=== PATIENT | male | born 1990 ===

== ENCOUNTER 2017-11-07 06:47 | Day surgery (SDC) | payer OTHER ==
[~2017-11-07] VITALS: Ht 175.3 cm; Wt 62.6 kg
[2017-11-07] VITALS (10 sets, daily range): BP systolic 93–137; BP diastolic 43–67
[~2017-11-07 06:47] MED LIST: RECTIV30 GM RC
[2017-11-07] MEDS ORDERED: TRAZODONE HCL50 MG ORAL (07:25)
[2017-11-07] MEDS ORDERED: EPINEPHrine 1mg/1ml Amp ONE (07:27)
[2017-11-07] MEDS ORDERED: Ropivacaine 5mg/ml Vial 30ml INJ ONE ×2 (07:27→08:43)
[2017-11-07] MEDS ORDERED: Dexamethasone 4mg/ml vial ONE ×2 (07:27→09:00)
[2017-11-07] MEDS ORDERED: Lidocaine 1% Plain 30 ml INJ ONE (07:54)
[2017-11-07] MEDS ORDERED: cefOXitin 1gm Inj ONE (07:56)
[2017-11-07] MEDS ORDERED: Sodium Chloride 10ml vial INJ ONE (08:00)
[2017-11-07] MEDS ORDERED: Alfentanil 2ml Inj ONE (08:06)
[2017-11-07] MEDS ORDERED: Lidocaine 1% MPF 10mg/ml 5ml ONE (08:14)
--- NOTE | 2017-11-07 08:18 | Pre-Procedure Note/Attestation ---
Pre-Procedure Note/Attestation Complete Prior to Procedure Planned Procedure: not applicable Procedure Narrative: Exam under anesthesia, anal fissurectomy, possible lateral partial internal sphincterotomy Indications for Procedure Pre-Operative Diagnosis: chronic anal fissure Attestation I attest that I discussed the nature of the procedure; its benefits; risks and complications; and alternatives (and the risks and benefits of such alternatives ), prior to the procedure, with the patient (or the patient's legal retail wireless sales representative). I attest that, if there was a reasonable possibility of needing a blood transfusion, the patient (or the patient's legal retail wireless sales representative) was given the [place] [facility] [employer] [facility] standardized written summary, pursuant to the Papito Hyndman Blood Safety Act ([place] Health and Safety Code # 1645, as amended). I attest that I re-evaluated the patient just prior to the surgery and that there has been no change in the patient's H&P, except as documented below: NANCY SCHMITZ Nov 07, 2017 08:18
--- NOTE | 2017-11-07 08:22 | Anethesia Preoperative Eval ---
Anesthesia Pre-op PMH/ROS General Date of Evaluation: Nov 07, 2017 Time of Evaluation: 08:31 Anesthesiologist: Ann ASA Score: ASA 2 Mallampati Score Class I : Soft palate, uvula, fauces, pillars visible Class II: Soft palate, uvula, fauces visible Class III: Soft palate, base of uvula visible Class IV: Only hard plate visible Mallampati Classification: Class I Surgeon: Kirill Diagnosis: Buttock Pain Surgical Procedure: EUA, Anal Fissurectomy Anesthesia History: none, MH - Suscetibility Possible Family History: no anesthesia problems Allergies: Uncoded Allergies: GENERAL ANESTHESIA (Allergy, Unknown, 11/05/17) GRANDFATHER HAD MALIGNANT HYPERTHERMIA-PT HAS NOT HAD ANY REACTION WITH PREVIOUS ANESTHESIA. PLEASE USE CAUTIONARY MEASURES. 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 Exam Physician Exam Last Vital Signs Date Time Temp Pulse Resp B/P (MAP) Pulse Ox O2 Delivery O2 Flow Rate FiO2 11/07/17 07:21 Room Air 11/07/17 07:17 97.1 63 18 137/67 (90) 99 97.1 Constitutional: NAD Neurologic: CN 2-12 intact Cardiovascular: RRR Respiratory: CTA Gastrointestinal: S/NT/ND Airway Exam Mallampati Score: Class I MO: full ROM: full Teeth: intact Anesthesia Pre-op A/P Risk Assessment & Plan Assessment: ASA 2 Plan: TIVA Status Change Before Surgery: No Pre-Antibiotics Dru Gram Cefoxitin Given Within 1 Hr of Incision: Yes Time Given: 08:41 Luis Juarez MD Nov 07, 2017 08:22
--- NOTE | 2017-11-07 08:23 | Immediate Post-Op Evaluation ---
Immediate Post-Op Evalulation Immediate Post-Op Evalulation Procedure: EUA, Anal Fissurectomy Date of Evaluation: Nov 07, 2017 Time of Evaluation: 09:35 IV Fluids: 400 LR Blood Products: 0 Estimated Blood Loss: 8 Urinary Output: 0 Blood Pressure Systolic: 97 Blood Pressure Diastolic: 46 Pulse Rate: 59 Respiratory Rate: 16 O2 Sat by Pulse Oximetry: 100 Temperature (Fahrenheit): 98 Pain Score (1-10): 1 Nausea: No Vomiting: No Complications 0 Patient Status: awake, reacts, patent, none Hydration Status: adequate Dru Gram Cefoxitin Given Within 1 Hr of Incision: Yes Time Given: 08:41 Luis Juarez MD Nov 07, 2017 08:23
--- NOTE | 2017-11-07 08:24 | 48 Hour Post Anesthesia Eval ---
Post Anesthesia Evaluation Procedure: EUA, Anal Fissurectomy Date of Evaluation: Nov 07, 2017 Time of Evaluation: 11:47 Blood Pressure Systolic: 106 0: 72 Pulse Rate: 64 Respiratory Rate: 18 Temperature (Fahrenheit): 98 O2 Sat by Pulse Oximetry: 100 Airway: patent Nausea: No Vomiting: No Pain Intensity: 1 Hydration Status: adequate Cardiopulmonary Status: Stable Mental Status/LOC: patient returned to baseline Follow-up Care/Observations: 0 Post-Anesthesia Complications: 0 Follow-up care needed: ready to discharge Luis Juarez MD Nov 07, 2017 08:24
[2017-11-07] MEDS ORDERED: LR 1000ml ONE (08:30)
[2017-11-07] MEDS ORDERED: Sterile Water Irrig 1000ml IRRIG ONE (08:30)
[2017-11-07] MEDS ORDERED: Propofol 200mg/20ml IV ONE (08:30)
[2017-11-07] MEDS ORDERED: NS Irrig 1000ml ONE (08:30)
[2017-11-07] MEDS ORDERED: Dexamethasone 4mg/ml vial INJ ONE (08:43)
[2017-11-07] MEDS ORDERED: Ketamine 500mg Inj ONE (09:04)
--- NOTE | 2017-11-07 09:21 | Brief Operative Note ---
Immediate Post Operative Note Operative Note Pre-op Diagnosis: chronic anal fissure Procedure: Exam under anesthesia, anal fissurectomy, lateral partial internal sphincterotomy Post-op Diagnosis: same as pre-op Findings: consistent w/pre-op dx studies Surgeon: Hien Schmitz MD Anesthesiologist: Luis Juarez MD Anesthesia: moderate sedation Specimen: none Complications: none Condition: stable Fluids: see anesthesia record Estimated Blood Loss: minimal Drains: none Implant(s) used?: No HIEN SCHMITZ Nov 07, 2017 09:21
--- NOTE | 2017-11-07 14:00 | Operative Note - Dictated ---
DATE OF OPERATION: 11/07/2017 PREOPERATIVE DIAGNOSIS: Chronic anal fissure. POSTOPERATIVE DIAGNOSIS: Chronic anal fissure. PROCEDURE: Exam under anesthesia, anal fissurectomy, lateral partial internal sphincterotomy. SURGEON: Hien Roy M.D. ANESTHESIOLOGIST: Luis Juarez M.D. ANESTHESIA: Propofol sedation with local anesthetic. INDICATION FOR PROCEDURE: The patient is a 27-year-old male, who came to see me on October 16, 2017 with a history of chronic anal pain. The patient had a Botox injection for his anal fissure in November 2016 in [place] and was also treated with nitroglycerin as well. The patient was found to have some spasm on physical exam with chronic posterior and anterior anal fissures. In light of the patient's continued symptoms, it was determined at this time to proceed with exam under anesthesia with possible sphincterotomy. DESCRIPTION OF PROCEDURE: Upon consent of the patient, the patient was brought to the operating room and placed in the prone mat-knife position on the operating room table. Once adequate sedation was established with propofol drip, the patient's buttocks were prepped and draped in usual surgical fashion. A 40 mL of 0.5% ropivacaine with epinephrine mixed with 8 mg of dexamethasone was used as a perianal and pudendal block. A Hill-Brooke retractors were placed in the anal canal. There were noted to be small internal hemorrhoids circumferentially. There were chronic anal fissures in the posterior and anterior midline in which the old scar was electrocauterized. The left lateral intersphincteric groove was palpated and a small stab incision was made in the intersphincteric groove. The internal sphincter muscle was isolated and divided. The internal sphincter muscle was noted to be hypertrophied. A 3-0 Vicryl interrupted sutures were used to close the wound and the anal canal was then irrigated. Hemostasis confirmed. Sterile dry dressing was used as an outer dressing. Sponge, needle, and instrument counts were correct at the end of the case. The patient was awake from anesthesia and brought to postanesthesia recovery in stable condition. ESTIMATED BLOOD LOSS: Less than 5 mL. DRAINS: None. SPECIMEN: None. COMPLICATIONS: None. Hien Roy M.D. DR: LYN JOB#: [id number] CC: Hien Roy M.D.; Fax#: [phone]
== END 2017-11-07 11:00 | disposition home or self-care (01) ==
LOC: SUR 06:47
DX: K60.2 Anal fissure, unspecified (principal); F32.9 Major depressive disorder, single episode, unspecified; F41.9 Anxiety disorder, unspecified; Z88.4 Allergy status to anesthetic agent
CPT/HCPCS: 46200; J0171; J0694; J1100; J2001; J2250; J2405; J2704; J2795; J3490; J7120; 94003; 94150